=== PATIENT | female | born 1970 | race African-American/Black ===

== ENCOUNTER 2024-08-16 08:45 | Day surgery (SDC) | payer OTHER ==
[~2024-08-16] VITALS: Ht 152.4 cm; Wt 154.5 kg
[~2024-08-16 08:45] MED LIST: ALBU18HF12 IH; ATOR10TA69 PO; BETA15CR46 TP; BUPR-722 PO; CETI10TA58 PO; DICL100G60 TP; FAMO20 PO; FLUT16SP NASAL; FOLI-130 PO; GABA250S6 PO; HYDR50CA6 PO; INSU100V36 SQ; INSU3INS3 SQ; LEVO125T95 PO; LIDO5CRE26 TP; LORA1TAB25 PO; MONT-40 PO; NYST15PO13 TP; SODIUM CHLORIDE 0.9% 1,000 ML ONE; TIRZ5PEN SQ; TIZA-211 PO; ZOLP-162 PO
[2024-08-16] MEDS: SODIUM CHLORIDE 0.9% 1,000 ML IV ONE (09:44)
[2024-08-16 10:01] LABS: GLUCOMETER DEV NAME(LOC) SDS.; GLUCOSE,POINT OF CARE 206 MG/DL (70-110)
[2024-08-16] MEDS ORDERED: PROPOFOL 1% 20 ML VIAL IVP ONE (12:00)
[2024-08-16] MEDS ORDERED: LIDOCAINE/PF 2% 5 ML VIAL ONE (12:00)
[2024-08-16] MEDS ORDERED: OXYGEN THERAPY IH SCH (20:00)
== END 2024-08-16 12:50 | disposition home or self-care (01) ==
LOC: SURGERY 08:45
PROVIDERS: ATTEND Specialist
DX: R19.5 Other fecal abnormalities (principal); D12.4 Benign neoplasm of descending colon; I10 Essential (primary) hypertension; E11.9 Type 2 diabetes mellitus without complications; E66.01 Morbid (severe) obesity due to excess calories; F41.9 Anxiety disorder, unspecified; Z79.899 Other long term (current) drug therapy; Z90.49 Acquired absence of other specified parts of digestive tract; Z98.890 Other specified postprocedural states; Z98.84 Bariatric surgery status; Z88.8 Allergy status to other drugs, medicaments and biological substances; Z88.6 Allergy status to analgesic agent; Z88.0 Allergy status to penicillin; Z88.1 Allergy status to other antibiotic agents; Z68.44 Body mass index [BMI] 60.0-69.9, adult
CPT/HCPCS: 45385; 88305; 82962; J2704; J3490; J7030